=== PATIENT | male | born 1965 | race Caucasian/White ===

== ENCOUNTER 2020-10-31 08:40 | Outpatient (REF) | payer OTHER, SELFPAY ==
--- NOTE | 2020-10-31 10:31 | MHC.AU.P13 ---
Hearing Instrument Fitting- Adult- Left Ear Date of Visit: 10/31/20 Hearing Instrument(s) Dispensed: Left Ear: Xm1 Tank Driver: Message Missile Model: Audeo M70-R Serial Number: [id number] Warranty: 01/04/2024 Battery Size: Rechargeable Color: Black Mobile Equipment Mechanic: 1M Type of Mold: SlimTip Type of Wax Guard: CeruStop Summary of Fitting: Patient brought a recent audiogram (from 10/15/2020) [facility] to today's appointment; therefore, we did not need to perform an updated hearing test. Feedback media relations manager was run. Verifit performed and levels adjusted. Patient felt 100% target was too loud. Lowered to 90% target, and lowered overall gain by 1 step, which patient felt was more comfortable. Hearing aid care and maintenance were discussed and practiced. Did not pair to the patient's phone at this time, as patient uses his right, unaided ear on the phone. Discussed the cuco, including RemoteSupport, if he wants to use those in the future. Recommendations: A hearing instrument follow-up was scheduled. Please call our clinic with any questions or concerns. Diagnosis Code(s): Primary Diagnosis: H90.A32 Mixed HL, Unilateral, Left Ear, W/Restricted Contralateral Signature: Provider: Geraldine Rai, JANINE-A
== END 2020-10-31 08:41 | disposition home or self-care (01) ==
LOC: HO.HAP 08:40
PROVIDERS: Visit Provider Internal Medicine
DX: Z46.1 Encounter for fitting and adjustment of hearing aid (principal); H90.A32 Mixed conductive and sensorineural hearing loss, unilateral, left ear with restricted hearing on the contralateral side
CPT/HCPCS: 92594; V5011; V5020; V5241; V5257; V5264; V5275

== ENCOUNTER 2020-11-14 10:32 | Outpatient (REF) | payer SELFPAY ==
--- NOTE | 2020-11-14 11:56 | MHC.AU.P13 ---
Hearing Instrument Follow-Up Date of Visit: 11/14/20 Left Ear: Digital Media Director: Phonak Model: Audeo M70-R Serial Number: [id number] RepairWarranty: 01/04/2024 Battery Size: Rechargeable Color: Black Cheese Cutter: 1M Type of Mold: SlimTip Type of Wax Guard: CeruStop Follow-Up Summary: Patient arrived for hearing aid follow-up. He reports that the sound quality has been great, and he has noticed significant benefit. His only complaint is that when he first puts the hearing aid on, it fits well; however, as the days goes on, the slim tip starts to move around a lot and slide out of place. He has to frequently twist it around and push it back in. The shape/size of patient's ear canal opening has been affected by a previous surgery. Impression was taken for a remake of the mold. We will request a canal lock to help hold it in place. Recommendations: Patient will be contacted when the remade slim tip has arrived. Diagnosis Code(s): Primary Diagnosis: H90.A32 Mixed HL, Unilateral, Left Ear, W/Restricted Contralateral Signature: Provider: Geraldine Rai, [facility]
== END 2020-11-14 10:33 | disposition home or self-care (01) ==
LOC: HO.HAP 10:32
PROVIDERS: Visit Provider Internal Medicine
DX: Z13.89 Encounter for screening for other disorder (principal)

== ENCOUNTER 2020-11-28 10:32 | Outpatient (REF) | payer SELFPAY | END 2020-11-28 10:33 | disposition home or self-care (01) | LOC: HO.HAP 10:32 | PROVIDERS: Visit Provider Internal Medicine | DX: Z13.89 Encounter for screening for other disorder (principal) ==

== ENCOUNTER 2020-12-12 08:10 | Outpatient (REF) | payer SELFPAY | END 2020-12-12 08:11 | disposition home or self-care (01) | LOC: HO.HAP 08:10 | PROVIDERS: Visit Provider Internal Medicine | DX: Z13.89 Encounter for screening for other disorder (principal) ==

== ENCOUNTER 2020-12-26 08:10 | Outpatient (REF) | payer SELFPAY | END 2020-12-26 08:11 | disposition home or self-care (01) | LOC: HO.HAP 08:10 | PROVIDERS: Visit Provider Otolaryngology | DX: Z13.89 Encounter for screening for other disorder (principal) ==